=== PATIENT | male | born 1965 | race African-American/Black ===

== ENCOUNTER 2023-02-19 16:12 | Inpatient (IN) | payer OTHER ==
[2023-02-19 18:16] VITALS: BMI 19.5
[2023-02-19] MEDS ORDERED: Calcium Carbonate 500 MG ChewTAB PO PRN (19:07)
[2023-02-19] MEDS ORDERED: Senokot S 8.6-50 MG TAB PO PRN (19:07)
[2023-02-19] MEDS ORDERED: Ondansetron ODT 4 MG TAB PO PRN (19:07)
[2023-02-19] MEDS ORDERED: Acetaminophen 325 MG TAB PO PRN (19:07)
[2023-02-19 19:44] LABS: #Monocytes 1.5 thou/uL (0.11-0.59); #Neutrophils 14.1 thou/uL (1.40-6.50); %Basophils 0.2 % (0.0-1.0); %Eosinophils 0.1 % (0.0-10.0); %Lymphocytes 5.8 % (21.0-51.0); %Neutrophils 84.4 % (42.0-75.0); Hematocrit 33.9 % (42.0-52.0); Mean Corpuscular HGB CONC 32.4 g/dL (32.0-36.0); Mean Corpuscular Hemoglobin 24.7 pg (27.0-31.0); Mean Platelet Volume 9.6 fL (7.4-10.4); Platelet Count 350 10x3/uL (130-400); RBC Distribution Width 13.2 % (11.5-14.5); Red Blood Cell (RBC) Count 4.46 mill/uL (4.70-6.10); White Blood Cell (WBC) Count 16.7 10x3/uL (4.8-10.8)
[2023-02-19 20:12] LABS: ALT (SGPT) 39 U/L (8-55); AST (SGOT) 38 U/L (5-34); Albumin 3.4 g/dL (3.5-5.0); Alkaline Phosphatase 96 U/L (40-110); Anion Gap 12 mmol/L (10-20); BUN (Urea Nitrogen) 24 mg/dL (8.4-25.7); Bilirubin, Total 0.6 mg/dL (0.2-1.2); Calc. Creatinine Clearance 105 mL/min (70-130); Calcium 9.1 mg/dL (7.8-10.44); Carbon Dioxide 31 mmol/L (22-29); Chloride 103 mmol/L (98-107); Estimated GFR 107; Globulin 3.5 g/dL (2.4-3.5); Glucose 90 mg/dL (70-105); Potassium 4.1 mmol/L (3.5-5.1); Protein, Total 6.9 g/dL (6.0-8.3); Sodium 142 mmol/L (136-145)
[2023-02-19] MEDS: Famotidine 20 MG TAB PO SCH (21:38)
[2023-02-19 23:32] LABS: Pleural Fluid, Protein 4.5 g/dL
[2023-02-20] MEDS ORDERED: Cefepime 1 GM in Sodium Chloride 0.9% 100 ML IVPB SCH (09:00)
[2023-02-20] MEDS: Famotidine 20 MG TAB PO SCH ×2 (09:12→21:14)
[2023-02-20 09:51] LABS: Hematocrit 33.3 % (42.0-52.0); Hemoglobin 10.8 g/dL (14.0-18.0)
[2023-02-20] MEDS ORDERED: Vancomycin (BATCH) 1.5 GM in Premix 1 BAG IVPB SCH (11:00)
[2023-02-20] MEDS: Cefepime 2 GM in Sodium Chloride 0.9% 100 ML IVPB SCH (21:14)
[2023-02-20] MEDS: Vancomycin (BATCH) 1.25 GM in Premix 1 BAG IVPB SCH (23:51)
[2023-02-21 04:07] LABS: #Eosinphils 0.1 thou/uL (0.0-0.7); #Monocytes 1.8 thou/uL (0.11-0.59); #Neutrophils 11.9 thou/uL (1.40-6.50); %Basophils 0.3 % (0.0-1.0); %Eosinophils 0.5 % (0.0-10.0); %Lymphocytes 7.3 % (21.0-51.0); %Monocytes 12.1 % (0.0-10.0); %Neutrophils 79.3 % (42.0-75.0); Hematocrit 31.2 % (42.0-52.0); Hemoglobin 10.3 g/dL (14.0-18.0); Mean Corpuscular Hemoglobin 24.7 pg (27.0-31.0); Mean Corpuscular Volume 74.8 fl (78.0-98.0); Mean Platelet Volume 9.3 fL (7.4-10.4); Platelet Count 325 10x3/uL (130-400); Red Blood Cell (RBC) Count 4.17 mill/uL (4.70-6.10)
[2023-02-21 04:33] LABS: Anion Gap 10 mmol/L (10-20); BUN (Urea Nitrogen) 16 mg/dL (8.4-25.7); Calc. Creatinine Clearance 115 mL/min (70-130); Carbon Dioxide 30 mmol/L (22-29); Chloride 105 mmol/L (98-107); Estimated GFR 110; Glucose 98 mg/dL (70-105); Potassium 3.7 mmol/L (3.5-5.1); Sodium 141 mmol/L (136-145)
[2023-02-21 05:28] LABS: Anisocytosis MODERATE=16-30 cells HPF (0-5); CellaVision Operator ID lab.sh2; Helmet Cells SLIGHT = 2-5 cells HPF (0-1); Hypochromia SLIGHT = 6-15 cells HPF (0-5); Macrocytosis MODERATE=16-30 cells HPF (0-5); Ovalocytes SLIGHT = 2-5 cells HPF (0-1); Platelet Adequacy Comment Platelets Normal; Poikilocytosis SLIGHT = 6-15 cells HPF (0-5); Smudge Cells 18.8 %; Target Cells MODERATE= 6-15 cells HPF (0-1)
[2023-02-21] MEDS: Cefepime 2 GM in Sodium Chloride 0.9% 100 ML IVPB SCH ×2 (08:18→21:34)
[2023-02-21] MEDS: Amlodipine 10 MG TAB PO SCH (08:19)
[2023-02-21] MEDS: Famotidine 20 MG TAB PO SCH ×2 (08:19→21:34)
[2023-02-21] MEDS: Vancomycin (BATCH) 1.25 GM in Premix 1 BAG IVPB SCH (11:40)
[2023-02-21 23:32] LABS: Vancomycin, Trough 5.9 ug/mL
[2023-02-22] MEDS: Vancomycin (BATCH) 1.25 GM in Premix 1 BAG IVPB SCH ×3 (00:47→17:48)
[2023-02-22 04:29] LABS: Hematocrit 30.9 % (42.0-52.0); Hemoglobin 10.1 g/dL (14.0-18.0); Mean Corpuscular HGB CONC 32.7 g/dL (32.0-36.0); Mean Corpuscular Volume 73.6 fl (78.0-98.0); Mean Platelet Volume 9.7 fL (7.4-10.4); Platelet Count 344 10x3/uL (130-400); RBC Distribution Width 12.8 % (11.5-14.5); White Blood Cell (WBC) Count 15.3 10x3/uL (4.8-10.8)
[2023-02-22 04:53] LABS: Anion Gap 10 mmol/L (10-20); BUN (Urea Nitrogen) 13 mg/dL (8.4-25.7); Calc. Creatinine Clearance 137 mL/min (70-130); Calcium 7.9 mg/dL (7.8-10.44); Carbon Dioxide 29 mmol/L (22-29); Chloride 104 mmol/L (98-107); Estimated GFR 116; Glucose 92 mg/dL (70-105); Potassium 3.8 mmol/L (3.5-5.1); Sodium 139 mmol/L (136-145)
[2023-02-22 04:57] LABS: Delete Auto Diff?? YES; Manual Diff?? YES
[2023-02-22 05:29] LABS: Band 1 % (5-11); CellaVision Operator ID LAB.CLH1; Eosinophils 2 % (0-10); Hypochromia SLIGHT = 6-15 cells HPF (0-5); Lymphocytes 7 % (21-51); Microcytosis SLIGHT = 6-15 cells HPF (0-5); Monocytes 7 % (0-10); Neutrophil 82 % (42-75); Nucleated RBC (Manual Ct) 1 % (0); Platelet Adequacy Comment Platelets Normal; Target Cells SLIGHT = 2-5 cells HPF (0-1); Total Cell Count 100
[2023-02-22] MEDS: Cefepime 2 GM in Sodium Chloride 0.9% 100 ML IVPB SCH ×2 (10:41→20:51)
[2023-02-22] MEDS: Amlodipine 10 MG TAB PO SCH (10:42)
[2023-02-22] MEDS: Famotidine 20 MG TAB PO SCH ×2 (10:42→20:51)
[2023-02-22] MEDS: Ipratropium/Albuterol 3 ML NEB NEB SCH ×2 (18:47→22:41)
[2023-02-22 23:35] LABS: Vancomycin, Trough 17.2 ug/mL
[2023-02-23] MEDS: Vancomycin (BATCH) 1.25 GM in Premix 1 BAG IVPB SCH (00:26)
[2023-02-23] MEDS: Ipratropium/Albuterol 3 ML NEB NEB SCH ×6 (02:18→22:53)
[2023-02-23] MEDS ORDERED: FLU VACC QS2023-24(6MOS UP)/PF 60 MCG/0.5 ML SYRINGE IM ONE (09:00)
[2023-02-23] MEDS: Cefepime 2 GM in Sodium Chloride 0.9% 100 ML IVPB SCH ×2 (10:05→20:27)
[2023-02-23] MEDS: Amlodipine 10 MG TAB PO SCH (10:06)
[2023-02-23] MEDS: Famotidine 20 MG TAB PO SCH ×2 (10:06→20:27)
[2023-02-23] MEDS ORDERED: Iopamidol-370 76% 500 ML MDV (1 ML CHARGE) ONE (14:23)
[2023-02-23 23:47] LABS: Vancomycin, Trough 4.3 ug/mL
[2023-02-24] MEDS: Ipratropium/Albuterol 3 ML NEB NEB SCH ×6 (01:56→22:46)
[2023-02-24] MEDS: Famotidine 20 MG TAB PO SCH ×2 (09:15→20:27)
[2023-02-24] MEDS: Amlodipine 10 MG TAB PO SCH (09:15)
[2023-02-24] MEDS: Cefepime 2 GM in Sodium Chloride 0.9% 100 ML IVPB SCH ×2 (09:15→20:27)
[2023-02-25] MEDS: Ipratropium/Albuterol 3 ML NEB NEB SCH ×3 (02:55→11:20)
[2023-02-25 04:40] LABS: #Basophils 0.1 thou/uL (0.0-0.2); #Eosinphils 0.4 thou/uL (0.0-0.7); #Monocytes 1.4 thou/uL (0.11-0.59); #Neutrophils 10.1 thou/uL (1.40-6.50); %Basophils 0.5 % (0.0-1.0); %Eosinophils 2.6 % (0.0-10.0); %Lymphocytes 9.4 % (21.0-51.0); %Monocytes 10.7 % (0.0-10.0); %Neutrophils 76.1 % (42.0-75.0); Hematocrit 26.4 % (42.0-52.0); Hemoglobin 8.7 g/dL (14.0-18.0); Mean Corpuscular Hemoglobin 24.6 pg (27.0-31.0); Mean Corpuscular Volume 74.6 fl (78.0-98.0); Mean Platelet Volume 8.9 fL (7.4-10.4); Platelet Count 359 10x3/uL (130-400); RBC Distribution Width 12.8 % (11.5-14.5); Red Blood Cell (RBC) Count 3.54 mill/uL (4.70-6.10); White Blood Cell (WBC) Count 13.3 10x3/uL (4.8-10.8)
[2023-02-25 05:12] LABS: Anion Gap 12 mmol/L (10-20); BUN (Urea Nitrogen) 14 mg/dL (8.4-25.7); Calc. Creatinine Clearance 125 mL/min (70-130); Calcium 7.9 mg/dL (7.8-10.44); Carbon Dioxide 26 mmol/L (22-29); Chloride 104 mmol/L (98-107); Estimated GFR 113; Glucose 98 mg/dL (70-105); Potassium 4.4 mmol/L (3.5-5.1); Sodium 138 mmol/L (136-145)
[2023-02-25 08:14] LABS: Anisocytosis MARKED = >30 cells HPF (0-5); Burr Cells SLIGHT = 2-5 cells HPF (0-1); CellaVision Operator ID LAB.CMB; Hypochromia SLIGHT = 6-15 cells HPF (0-5); Large Platelets 0.9 % (0-5); Macrocytosis MARKED = >30 cells HPF (0-5); Platelet Adequacy Comment Platelets Normal; Polychromasia MARKED = >4 cells HPF (0-2); Target Cells MODERATE= 6-15 cells HPF (0-1)
[2023-02-25] MEDS: Famotidine 20 MG TAB PO SCH ×2 (09:14→20:57)
[2023-02-25] MEDS: Cefepime 2 GM in Sodium Chloride 0.9% 100 ML IVPB SCH ×2 (09:14→20:57)
[2023-02-25] MEDS: Amlodipine 10 MG TAB PO SCH (09:14)
[2023-02-25] MEDS ORDERED: Ipratropium/Albuterol 3 ML NEB NEB PRN (11:18)
[2023-02-26] MEDS: Cefepime 2 GM in Sodium Chloride 0.9% 100 ML IVPB SCH ×2 (08:39→22:02)
[2023-02-26] MEDS: Famotidine 20 MG TAB PO SCH ×2 (08:39→22:02)
[2023-02-26] MEDS: Amlodipine 10 MG TAB PO SCH (08:39)
[2023-02-27] MEDS: Famotidine 20 MG TAB PO SCH (08:42)
[2023-02-27] MEDS: Amlodipine 10 MG TAB PO SCH (08:42)
[2023-02-27] MEDS: Cefepime 2 GM in Sodium Chloride 0.9% 100 ML IVPB SCH (08:42)
[2023-02-27 09:56] VITALS: BP 118/71; TEMP 98.6
== END 2023-02-27 10:00 | disposition home or self-care (01) | DRG 871 ==
LOC: 2NO 17:41 → T4-B 02-25 15:57
PROVIDERS: ADMIT Internal Medicine; ATTEND Hospitalist
PROC: 0W9930Z Drainage of Right Pleural Cavity with Drainage Device, Percutaneous Approach (ICD-10-PCS; principal; 2023-02-20)
PROC: 3E03329 Introduction of Other Anti-infective into Peripheral Vein, Percutaneous Approach (ICD-10-PCS; 2023-02-20)
DX: A41.9 Sepsis, unspecified organism (principal); J18.9 Pneumonia, unspecified organism; J96.01 Acute respiratory failure with hypoxia; J98.11 Atelectasis; J91.0 Malignant pleural effusion; E44.1 Mild protein-calorie malnutrition; C79.31 Secondary malignant neoplasm of brain; C34.11 Malignant neoplasm of upper lobe, right bronchus or lung; Z68.1 Body mass index [BMI] 19.9 or less, adult; F17.210 Nicotine dependence, cigarettes, uncomplicated; I10 Essential (primary) hypertension; M19.90 Unspecified osteoarthritis, unspecified site; R91.8 Other nonspecific abnormal finding of lung field; Y95 Nosocomial condition; Z82.49 Family history of ischemic heart disease and other diseases of the circulatory system; Z71.6 Tobacco abuse counseling; Z80.0 Family history of malignant neoplasm of digestive organs; Z80.1 Family history of malignant neoplasm of trachea, bronchus and lung
CPT/HCPCS: 36415; 36416; 70553; 71045; 74177; 80048; 80202; 82945; 83615; 84145; 84157; 85014; 85018; 85025; 87040; 87070; 87081; 87205; 88112; 88184; 88305; 88312; 88341; 88342; 88360; 94640; J0692; J3370; J3490; J7620; Q9967

== ENCOUNTER 2023-03-15 10:15 | Outpatient (CLI) | payer OTHER | END 2023-03-15 10:16 | LOC: PET 10:15 | PROVIDERS: ATTEND Internal Medicine Hematology & Oncology | DX: C34.01 Malignant neoplasm of right main bronchus (principal); J90 Pleural effusion, not elsewhere classified; J98.11 Atelectasis; R91.8 Other nonspecific abnormal finding of lung field | CPT/HCPCS: 78815; A9552 ==

== ENCOUNTER 2023-03-26 17:02 | Inpatient (IN) | payer OTHER ==
[2023-03-26 21:09] VITALS: BMI 19.2
[2023-03-26] MEDS ORDERED: Ondansetron ODT 4 MG TAB PO PRN (21:55)
[2023-03-26] MEDS ORDERED: Calcium Carbonate 500 MG ChewTAB PO PRN (21:55)
[2023-03-26] MEDS ORDERED: Acetaminophen 325 MG TAB PO PRN (21:55)
[2023-03-27] MEDS ORDERED: Ondansetron ODT 4 MG TAB PO PRN (01:07)
[2023-03-27 04:40] LABS: Hematocrit 26.8 % (42.0-52.0); Hemoglobin 8.8 g/dL (14.0-18.0); Mean Corpuscular HGB CONC 32.8 g/dL (32.0-36.0); Mean Corpuscular Hemoglobin 23.7 pg (27.0-31.0); Mean Platelet Volume 10.2 fL (7.4-10.4); Platelet Count 115 10x3/uL (130-400); Red Blood Cell (RBC) Count 3.71 mill/uL (4.70-6.10); White Blood Cell (WBC) Count 8.9 10x3/uL (4.8-10.8)
[2023-03-27 05:07] LABS: Anion Gap 9 mmol/L (10-20); BUN (Urea Nitrogen) 18 mg/dL (8.4-25.7); Calc. Creatinine Clearance 124 mL/min (70-130); Calcium 7.8 mg/dL (7.8-10.44); Carbon Dioxide 35 mmol/L (22-29); Chloride 95 mmol/L (98-107); Estimated GFR 113; Glucose 83 mg/dL (70-105); Potassium 3.9 mmol/L (3.5-5.1); Sodium 135 mmol/L (136-145)
[2023-03-27 05:32] LABS: Delete Auto Diff?? YES; Manual Diff?? YES; Mean Corpuscular Volume 72.2 fl (78.0-98.0)
[2023-03-27 06:51] LABS: Anisocytosis SLIGHT = 6-15 cells HPF (0-5); Band 9 % (5-11); Blast 1 % (0-0); CellaVision Operator ID LAB.JMM; Elliptocytes SLIGHT = 2-5 cells HPF (0-1); Hypochromia SLIGHT = 6-15 cells HPF (0-5); Lymphocytes 5 % (21-51); Macrocytosis MARKED = >30 cells HPF (0-5); Monocytes 6 % (0-10); Myelocyte 1 % (0-0); Neutrophil 78 % (42-75); Nucleated RBC (Manual Ct) 2 % (0); Platelet Adequacy Comment Platelets Decreased; Polychromasia SLIGHT = 2-3 cells HPF (0-2); Schistocytes SLIGHT = 2-5 cells HPF (0-1); Smudge Cells 19.6 %; Target Cells MODERATE= 6-15 cells HPF (0-1); Total Cell Count 102
[2023-03-27] MEDS ORDERED: KETAMINE 100 MG/ML (5ML VIAL) ONE (08:51)
[2023-03-27] MEDS: Amlodipine 10 MG TAB PO SCH (09:00)
[2023-03-27] MEDS: Famotidine 20 MG TAB PO SCH ×2 (09:00→21:20)
[2023-03-27] MEDS ORDERED: Midazolam HCl 2 mg/2 ml Vial ONE (09:05)
[2023-03-27] MEDS ORDERED: CEFAZOLIN 1 GM VIAL ONE ×2 (09:47)
[2023-03-27] MEDS ORDERED: Esmolol 100 MG/10 ML VIAL ONE ×2 (09:47→09:53)
[2023-03-27] MEDS ORDERED: Promethazine HCl 25 MG/ML VIAL IM PRN (10:11)
[2023-03-27] MEDS ORDERED: Ondansetron HCl/PF 4 MG/2 ML Vial IVP PRN (10:11)
[2023-03-27] MEDS ORDERED: Ketorolac Tromethamine 30 MG/ML VIAL IVP PRN (10:36)
[2023-03-27] MEDS ORDERED: traMADol HCl 50 MG TAB PO PRN (10:36)
[2023-03-27 20:33] LABS: Hematocrit 27.4 % (42.0-52.0); Mean Corpuscular HGB CONC 32.8 g/dL (32.0-36.0); Mean Corpuscular Volume 73.1 fl (78.0-98.0); Mean Platelet Volume 9.1 fL (7.4-10.4); Platelet Count 93 10x3/uL (130-400); RBC Distribution Width 13.8 % (11.5-14.5); Red Blood Cell (RBC) Count 3.75 mill/uL (4.70-6.10); White Blood Cell (WBC) Count 12.3 10x3/uL (4.8-10.8)
[2023-03-27 20:42] LABS: Delete Auto Diff?? YES; Manual Diff?? YES
[2023-03-27 21:21] LABS: Band 1 % (5-11); CellaVision Operator ID lab.abc; Hypochromia SLIGHT = 6-15 cells HPF (0-5); Lymphocytes 6 % (21-51); Microcytosis SLIGHT = 6-15 cells HPF (0-5); Monocytes 11 % (0-10); Neutrophil 83 % (42-75); Nucleated RBC (Manual Ct) 1 % (0); Platelet Adequacy Comment Platelets Decreased; Polychromasia SLIGHT = 2-3 cells HPF (0-2); Schistocytes SLIGHT = 2-5 cells HPF (0-1); Smudge Cells 9.6 %; Target Cells SLIGHT = 2-5 cells HPF (0-1); Total Cell Count 104
[2023-03-27 22:43] LABS: Anion Gap 10 mmol/L (10-20); BUN (Urea Nitrogen) 18 mg/dL (8.4-25.7); Calc. Creatinine Clearance 129 mL/min (70-130); Carbon Dioxide 34 mmol/L (22-29); Chloride 97 mmol/L (98-107); Estimated GFR 114; Glucose 89 mg/dL (70-105); Magnesium 2.1 mg/dL (1.6-2.6); Potassium 4.1 mmol/L (3.5-5.1); Sodium 137 mmol/L (136-145)
[2023-03-27] MEDS ORDERED: Metoprolol Tartrate 5 MG/5 ML VIAL IVP SCH (23:00)
[2023-03-28] MEDS: methylPREDNISolone Sod Succ 40 MG VIAL IVP SCH ×5 (00:47→21:33)
[2023-03-28] MEDS: guaiFENesin/DM ER PO SCH ×4 (01:00→21:33)
[2023-03-28] MEDS: Ipratropium/Albuterol 3 ML NEB NEB SCH ×4 (07:19→18:03)
[2023-03-28] MEDS: Amlodipine 10 MG TAB PO SCH (08:52)
[2023-03-28] MEDS: Famotidine 20 MG TAB PO SCH ×2 (08:52→21:33)
[2023-03-28] MEDS: Folic Acid 1 MG TAB PO SCH (08:52)
[2023-03-28] MEDS ORDERED: Senokot S 8.6-50 MG TAB PO PRN (16:27)
[2023-03-28] MEDS ORDERED: Ipratropium/Albuterol 3 ML NEB NEB SCH (21:17)
[2023-03-29] MEDS: methylPREDNISolone Sod Succ 40 MG VIAL IVP SCH ×4 (04:13→20:51)
[2023-03-29] MEDS: Ipratropium/Albuterol 3 ML NEB NEB SCH ×4 (07:25→18:56)
[2023-03-29] MEDS: Amlodipine 10 MG TAB PO SCH (08:37)
[2023-03-29] MEDS: Folic Acid 1 MG TAB PO SCH (08:37)
[2023-03-29] MEDS: guaiFENesin/DM ER PO SCH ×2 (08:37→20:51)
[2023-03-29] MEDS: Famotidine 20 MG TAB PO SCH ×2 (08:37→20:51)
[2023-03-30] MEDS: methylPREDNISolone Sod Succ 40 MG VIAL IVP SCH (03:40)
[2023-03-30] MEDS: Ipratropium/Albuterol 3 ML NEB NEB SCH ×4 (06:37→21:47)
[2023-03-30] MEDS: Folic Acid 1 MG TAB PO SCH (09:15)
[2023-03-30] MEDS: Amlodipine 10 MG TAB PO SCH (09:15)
[2023-03-30] MEDS: guaiFENesin/DM ER PO SCH ×2 (09:15→20:38)
[2023-03-30] MEDS: predniSONE 5 MG TAB PO SCH (09:15)
[2023-03-30 09:18] LABS: #Monocytes 0.7 thou/uL (0.11-0.59); #Neutrophils 9.9 thou/uL (1.40-6.50); %Basophils 0.2 % (0.0-1.0); %Lymphocytes 5.3 % (21.0-51.0); %Monocytes 6.3 % (0.0-10.0); %Neutrophils 87.1 % (42.0-75.0); Hematocrit 29.1 % (42.0-52.0); Hemoglobin 9.5 g/dL (14.0-18.0); Mean Corpuscular HGB CONC 32.6 g/dL (32.0-36.0); Mean Corpuscular Hemoglobin 23.8 pg (27.0-31.0); Mean Corpuscular Volume 72.9 fl (78.0-98.0); RBC Distribution Width 14.1 % (11.5-14.5); Red Blood Cell (RBC) Count 3.99 mill/uL (4.70-6.10); White Blood Cell (WBC) Count 11.4 10x3/uL (4.8-10.8)
[2023-03-30 09:22] LABS: Platelet Count 104 10x3/uL (130-400)
[2023-03-30 09:33] LABS: ALT (SGPT) 24 U/L (8-55); AST (SGOT) 36 U/L (5-34); Albumin 2.9 g/dL (3.5-5.0); Alkaline Phosphatase 95 U/L (40-110); Anion Gap 15 mmol/L (10-20); BUN (Urea Nitrogen) 19 mg/dL (8.4-25.7); Bilirubin, Total 0.4 mg/dL (0.2-1.2); Calc. Creatinine Clearance 119 mL/min (70-130); Calcium 8.8 mg/dL (7.8-10.44); Carbon Dioxide 30 mmol/L (22-29); Chloride 100 mmol/L (98-107); Estimated GFR 113; Globulin 3.6 g/dL (2.4-3.5); Glucose 144 mg/dL (70-105); Potassium 4.4 mmol/L (3.5-5.1); Protein, Total 6.5 g/dL (6.0-8.3); Sodium 141 mmol/L (136-145)
[2023-03-31] MEDS: Ipratropium/Albuterol 3 ML NEB NEB SCH ×4 (07:46→19:54)
[2023-03-31] MEDS: Folic Acid 1 MG TAB PO SCH (08:55)
[2023-03-31] MEDS: predniSONE 5 MG TAB PO SCH (08:55)
[2023-03-31] MEDS: guaiFENesin/DM ER PO SCH ×2 (08:56→21:44)
[2023-03-31] MEDS: Amlodipine 10 MG TAB PO SCH (08:57)
[2023-04-01] MEDS: Ipratropium/Albuterol 3 ML NEB NEB SCH ×4 (07:05→19:23)
[2023-04-01] MEDS: Folic Acid 1 MG TAB PO SCH (08:12)
[2023-04-01] MEDS: predniSONE 5 MG TAB PO SCH (08:12)
[2023-04-01] MEDS: guaiFENesin/DM ER PO SCH ×2 (08:13→20:33)
[2023-04-01] MEDS: Amlodipine 10 MG TAB PO SCH (08:13)
[2023-04-02] MEDS: Ipratropium/Albuterol 3 ML NEB NEB SCH (06:50)
[2023-04-02 07:54] VITALS: BP 102/65; TEMP 98.6
[2023-04-02] MEDS: predniSONE 5 MG TAB PO SCH (08:22)
[2023-04-02] MEDS: Folic Acid 1 MG TAB PO SCH (08:22)
[2023-04-02] MEDS: guaiFENesin/DM ER PO SCH (08:22)
[2023-04-02] MEDS: Amlodipine 10 MG TAB PO SCH (08:25)
== END 2023-04-02 15:42 | disposition home or self-care (01) | DRG 180 ==
LOC: 2NO 19:40 → INTOOBSV 19:40 → OBSVTOIN 03-27 14:10 → MSONC 03-31 11:52
PROVIDERS: ADMIT Family Medicine; ATTEND Internal Medicine
PROC: 0W9930Z Drainage of Right Pleural Cavity with Drainage Device, Percutaneous Approach (ICD-10-PCS; principal; 2023-03-27)
DX: C34.91 Malignant neoplasm of unspecified part of right bronchus or lung (principal); J96.01 Acute respiratory failure with hypoxia; J91.0 Malignant pleural effusion; C79.31 Secondary malignant neoplasm of brain; I10 Essential (primary) hypertension; D64.9 Anemia, unspecified; Z79.899 Other long term (current) drug therapy; Z87.891 Personal history of nicotine dependence; Z98.890 Other specified postprocedural states; D50.0 Iron deficiency anemia secondary to blood loss (chronic); Z20.822 Contact with and (suspected) exposure to COVID-19
CPT/HCPCS: 36415; 36416; 71045; 71275; 80048; 80053; 81001; 83690; 83735; 83880; 84443; 84484; 85025; 85060; 85610; 85730; 87040; 87077; 87086; 87149; 87186; 93005; 93010; 94640; 96365; 96366; 96367; 96375; A7048; C1729; G0378; J0690; J0692; J1650; J1940; J2250; J2920; J3370; J7512; J7611; J7620; Q9967

== ENCOUNTER 2023-04-11 11:51 | Day surgery (SDC) | payer OTHER ==
[2023-04-11] MEDS ORDERED: diphenhydrAMINE 25 MG CAP PO SCH (13:00)
[2023-04-11] MEDS ORDERED: Acetaminophen 500 MG TAB PO SCH (13:00)
[2023-04-11] MEDS ORDERED: Acetaminophen 500 MG TAB ONE (13:59)
[2023-04-11 17:29] VITALS: BP 129/64; TEMP 97.7
== END 2023-04-11 17:29 | disposition home or self-care (01) ==
LOC: ONC/OP 11:51
PROVIDERS: ATTEND Internal Medicine Hematology & Oncology
DX: D64.9 Anemia, unspecified (principal); D69.6 Thrombocytopenia, unspecified
CPT/HCPCS: 36430; 86850; 86900; 86901; J1642; P9016

== ENCOUNTER → 2023-06-06 | Outpatient (CLI) | payer OTHER | LOC: PET 09:30 | PROVIDERS: ATTEND Internal Medicine Hematology & Oncology | DX: C34.01 Malignant neoplasm of right main bronchus (principal); R59.0 Localized enlarged lymph nodes | CPT/HCPCS: 78815; A9552 ==

== ENCOUNTER 2023-07-11 12:11 | Outpatient (CLI) | payer OTHER | END 2023-07-11 12:12 | disposition home or self-care (01) | LOC: SCSMRI 12:11 | PROVIDERS: ATTEND Radiology Radiation Oncology | DX: C79.31 Secondary malignant neoplasm of brain (principal); C34.90 Malignant neoplasm of unspecified part of unspecified bronchus or lung | CPT/HCPCS: 70553 ==

== ENCOUNTER → 2023-09-27 | Outpatient (CLI) | payer OTHER | LOC: PET 11:00 | PROVIDERS: ATTEND Internal Medicine Hematology & Oncology | DX: C34.01 Malignant neoplasm of right main bronchus (principal); R91.8 Other nonspecific abnormal finding of lung field; R59.0 Localized enlarged lymph nodes | CPT/HCPCS: 78815; A9552 ==

== ENCOUNTER 2024-01-04 09:30 | Outpatient (CLI) | payer OTHER | END 2024-01-04 09:31 | disposition home or self-care (01) | LOC: PET 09:30 | PROVIDERS: ATTEND Internal Medicine Hematology & Oncology | DX: C34.01 Malignant neoplasm of right main bronchus (principal); I96 Gangrene, not elsewhere classified | CPT/HCPCS: 78815; A9552 ==

== ENCOUNTER 2024-02-04 10:50 | Outpatient (CLI) | payer OTHER | END 2024-02-04 10:51 | disposition home or self-care (01) | LOC: SCSMRI 10:50 | PROVIDERS: ATTEND Radiology Radiation Oncology | DX: C79.31 Secondary malignant neoplasm of brain (principal); C34.90 Malignant neoplasm of unspecified part of unspecified bronchus or lung; R93.0 Abnormal findings on diagnostic imaging of skull and head, not elsewhere classified | CPT/HCPCS: 70553; 76376 ==

== ENCOUNTER 2024-04-15 13:00 | Outpatient (CLI) | payer OTHER | END 2024-04-15 15:00 | disposition home or self-care (01) | LOC: PET 13:00 | PROVIDERS: ATTEND Internal Medicine Hematology & Oncology | DX: C34.01 Malignant neoplasm of right main bronchus (principal) | CPT/HCPCS: 78815; A9552 ==

== ENCOUNTER 2024-12-15 10:15 | Outpatient (CLI) | payer OTHER | END 2024-12-15 10:16 | disposition home or self-care (01) | LOC: PET 10:15 | PROVIDERS: ATTEND Internal Medicine Hematology & Oncology | DX: C34.01 Malignant neoplasm of right main bronchus (principal); D50.0 Iron deficiency anemia secondary to blood loss (chronic); D51.3 Other dietary vitamin B12 deficiency anemia; R93.0 Abnormal findings on diagnostic imaging of skull and head, not elsewhere classified | CPT/HCPCS: 78815; A9552 ==

== ENCOUNTER 2025-01-30 14:32 | Outpatient (CLI) | payer OTHER | END 2025-01-30 14:33 | disposition home or self-care (01) | LOC: SCSMRI 14:32 | PROVIDERS: ATTEND Radiology Radiation Oncology | DX: C79.31 Secondary malignant neoplasm of brain (principal); C80.1 Malignant (primary) neoplasm, unspecified; M79.89 Other specified soft tissue disorders | CPT/HCPCS: 70553; 76376 ==